=== PATIENT | female | born 1970 | race Caucasian/White ===

== ENCOUNTER 2021-09-15 17:40 | Emergency (ER) | payer OTHER ==
[2021-09-15 17:50] VITALS: BP 188/100
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
== END 2021-09-15 19:21 | disposition home or self-care (01) ==
LOC: ED 17:40
DX: F32.A Depression, unspecified (principal); F10.920 Alcohol use, unspecified with intoxication, uncomplicated
CPT/HCPCS: 36415; 99281; 99283

== ENCOUNTER 2022-08-19 08:00 | Outpatient (CLI) | payer OTHER ==
[2022-08-19 12:53] LABS: BASOPHILS # (AUTO) 0.1 10^3/uL (0.0-0.1); BASOPHILS % (AUTO) 0.6 %; EOSINOPHILS # (AUTO) 0.2 10^3/uL (0.0-0.7); EOSINOPHILS % (AUTO) 2.1 %; HCT - HEMATOCRIT 39.2 % (37.0-47.0); HGB - HEMOGLOBIN 11.8 g/dL (12.0-16.0); LYMPHOCYTES # (AUTO) 1.8 10^3/uL (1.5-3.5); LYMPHOCYTES % (AUTO) 23.7 %; MEAN CORPUSCULAR HEMOGLOBIN 27.3 pg (27.0-31.0); MEAN CORPUSCULAR HGB CONC 30.1 g/dL (32.0-36.0); MEAN CORPUSCULAR VOLUME 90.7 fL (81.0-99.0); MEAN PLATELET VOLUME 10.1 fL (7.9-10.8); MONOCYTES # (AUTO) 0.6 10^3/uL (0.0-1.0); MONOCYTES % (AUTO) 7.3 %; NEUTROPHILS # (AUTO) 5.1 10^3/uL (1.5-6.6); NEUTROPHILS % (AUTO) 65.9 %; PLT - PLATELET COUNT 226 10^3/uL (130-450); RED BLOOD COUNT 4.32 10^6/uL (4.20-5.40); RED CELL DISTRIBUTION WIDTH 16.8 % (12.0-15.0); WHITE BLOOD COUNT 7.8 x10^3/uL (4.8-10.8)
[2022-08-19 13:36] LABS: CALCIUM 8.9 mg/dL (8.5-10.3); CREATININE 1.1 mg/dL (0.4-1.0); POTASSIUM 4.6 mmol/L (3.5-5.0); URIC ACID 9.8 mg/dL (2.6-7.2)
== END 2022-08-19 23:59 | disposition home or self-care (01) ==
LOC: LAB.N 08:00
PROVIDERS: ATTEND Family Medicine
DX: M79.671 Pain in right foot (principal)
CPT/HCPCS: 36415; 80048; 84550; 85025; 85651

== ENCOUNTER 2022-09-04 09:48 | Outpatient (CLI) | payer OTHER ==
[2022-09-04 10:27] LABS: BASOPHILS # (AUTO) 0.1 10^3/uL (0.0-0.1); BASOPHILS % (AUTO) 0.7 %; EOSINOPHILS # (AUTO) 0.1 10^3/uL (0.0-0.7); EOSINOPHILS % (AUTO) 1.6 %; HCT - HEMATOCRIT 42.1 % (37.0-47.0); HGB - HEMOGLOBIN 12.9 g/dL (12.0-16.0); LYMPHOCYTES # (AUTO) 2.1 10^3/uL (1.5-3.5); LYMPHOCYTES % (AUTO) 28.2 %; MEAN CORPUSCULAR HEMOGLOBIN 27.3 pg (27.0-31.0); MEAN CORPUSCULAR HGB CONC 30.6 g/dL (32.0-36.0); MEAN CORPUSCULAR VOLUME 89.2 fL (81.0-99.0); MEAN PLATELET VOLUME 9.8 fL (7.9-10.8); MONOCYTES # (AUTO) 0.5 10^3/uL (0.0-1.0); NEUTROPHILS # (AUTO) 4.7 10^3/uL (1.5-6.6); NEUTROPHILS % (AUTO) 63.2 %; PLT - PLATELET COUNT 249 10^3/uL (130-450); RED BLOOD COUNT 4.72 10^6/uL (4.20-5.40); WHITE BLOOD COUNT 7.5 x10^3/uL (4.8-10.8)
[2022-09-04 10:42] LABS: % IRON SATURATION 12 % (20-50); ALBUMIN 3.7 g/dL (3.2-5.5); ALBUMIN/GLOBULIN RATIO 1.1 (1.0-2.2); ALKALINE PHOSPHATASE 57 IU/L (42-121); ALT ALANINE AMINOTRANSFERASE 17 IU/L (10-60); AST ASPARTATE AMINOTRANSFERASE 16 IU/L (10-42); BILIRUBIN,TOTAL 0.8 mg/dL (0.2-1.0); BUN - BLOOD UREA NITROGEN 16 mg/dL (6-20); CALCIUM 8.9 mg/dL (8.5-10.3); CARBON DIOXIDE - CO2 23 mmol/L (21-32); CHLORIDE 104 mmol/L (101-111); CHOL/HDL RATIO 3.3 (<4.4); CHOLESTEROL 217 mg/dL; CREATININE 1.1 mg/dL (0.4-1.0); GFR - MDRD 53 (>89); GLUCOSE 99 mg/dL (70-100); HDL CHOLESTEROL 66 mg/dL; IRON 59 ug/dL (28-170); LDL CHOLESTEROL,CALCULATED 121 mg/dL; LDL/HDL RATIO 1.8 (<4.4); SODIUM 138 mmol/L (135-145); TOTAL IRON BINDING CAPACITY 491 ug/dL (250-450); TOTAL PROTEIN 7.1 g/dL (6.7-8.2); TRANSFERRIN 351 mg/dL (192-382); TRIGLYCERIDES 152 mg/dL; VLDL CHOLESTEROL 30 mg/dL
[2022-09-04 10:48] LABS: ESTIMATED AVERAGE GLUCOSE 111 mg/dL (70-100); HEMOGLOBIN A1c% 5.5 % (4.27-6.07)
[2022-09-04 10:54] LABS: THYROID STIMULATING HORMONE 4.03 uIU/mL (0.34-5.60)
[2022-09-04 11:02] LABS: FERRITIN 7.4 ng/mL (11.0-306.8)
[2022-09-04 11:05] LABS: FOLATE 6.31 ng/mL (5.90 - >24.8)
[2022-09-05 13:10] LABS: VITAMIN D 25-HYDROXY 39.3 ng/mL (30.0-100.0)
== END 2022-09-04 09:49 | disposition home or self-care (01) ==
LOC: LAB 09:48
PROVIDERS: ATTEND Nurse Practitioner
DX: Z13.220 Encounter for screening for lipoid disorders (principal); E66.01 Morbid (severe) obesity due to excess calories; Z98.84 Bariatric surgery status
CPT/HCPCS: 36415; 80053; 80061; 82306; 82607; 82728; 82746; 83036; 83540; 83721; 83970; 84425; 84443; 84466; 84590; 85025

== ENCOUNTER 2022-09-21 08:14 | Outpatient (CLI) | payer OTHER | END 2022-09-21 08:15 | disposition home or self-care (01) | LOC: RT 08:14 | PROVIDERS: ATTEND Podiatrist | DX: Z01.818 Encounter for other preprocedural examination (principal) | CPT/HCPCS: 93005 ==

== ENCOUNTER 2022-10-27 11:17 | Outpatient (CLI) | payer OTHER | END 2022-10-27 11:18 | disposition home or self-care (01) | LOC: LAB 11:17 | PROVIDERS: ATTEND Nurse Practitioner | DX: M10.9 Gout, unspecified (principal); Z51.81 Encounter for therapeutic drug level monitoring | CPT/HCPCS: 36415; 84550 ==

== ENCOUNTER 2022-11-18 15:48 | Outpatient (CLI) | payer OTHER ==
--- NOTE | 2022-11-18 16:30 | SLEEP CARE CONSULTATION ---
Information from patient questionnaire entered by Diana Quintanilla. I have reviewed and concur with the information entered by Diana Quintanilla. This document represents the service I personally performed and the decisions made by me, Ivett Claros ARNP. History of Present Illness Service Date and Time: 11/18/2022 1548 Reason for Visit: New patient, Previously diagnosed sleep apnea Chief Complaint: reports: Unrefreshed sleep, Snoring, Excessive daytime sleepiness, Observed pauses in breathing, Fatigue, Frequent awakenings at night Usual bedtime: 9PM Time it takes to fall asleep: 20MIN W/ TRAZADONE Snores at night: Yes Observed to quit breathing while asleep: Yes Sleeps alone due to snoring: No Number of times waking at night: 3 Reasons for waking at night: reports: Choking, Snoring, Bathroom. denies: Gasping for air Toss, Turn, or Twitch while sleeping: Yes Recalls having dreams: Yes Usually gets out of bed at: 6AM Feels refreshed in the morning: No Morning headache: No Sleepy or fatigued during the day: Yes Ever fallen asleep while driving: No Takes day naps: Yes (once on the weekend normally) Dreams during day naps: No Prior sleep studies: Yes Year and Where: [address] Additional HPI information: I had the pleasure of seeing ISIDRO SHAHID today regarding the possibility of her having a sleep disorder. Her current complaints are excessive daytime sleepiness, fatigue, frequent night awakenings, observed pauses in breathing, snoring and unrefreshed sleep. She states she used to have a CPAP machine in 2016. She lost 200 lbs after a gastric sleeve in 2018 and did not need her CPAP anymore. She states the weight has been creeping up since then and has re-gained about 100 lbs. Her snoring is increasing and her tells her she is stopping breathing at night. She is tired all the time with no energy during the day. She states last time she had so many episodes they put her on a CPAP after only a couple hours into the night. 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 Patient is and lives in [place]. Have you smoked in the past 12 months: No Alcohol use: Yes Alcohol amount and frequency: 1 FEW TIMES A WEEK Caffeine use: Yes Caffeine amount and frequency: 2 TWICE A DAY Family History Family history of sleep disordered breathing: Yes Family Hx Sleep Apnea: Mother: Snoring, Father: Snoring Allergies and Home Medications Known drug allergies: No Drug allergies reviewed: Yes Home medication list reviewed: Yes (see updated list in EMR) Allergy and home medication list: Allergies No Known Drug Allergies Allergy (Verified 11/17/22 14:31) Review of Systems Weight gain over past 5 years: 100 Cardiovascular: reports: high blood pressure, leg or foot swelling Gastrointestinal: reports: heartburn Neurological: denies: headaches Psychiatric: reports: anxiety, mood disorder. denies: depression Ear/Nose/Throat: denies: tonsillectomy Endocrine: denies: thyroid disease Musculoskeletal: reports: joint pain, joint swelling, muscle pain or cramping Physical Exam Vital signs obtained and entered by: DIANA Wheeler MA Blood Pressure: 122/68 (LEFT ARM) Cuff size: long Heart Rate: 97 O2 Saturation: 98 Height: 5 ft 5 in Weight: 267 lb 12.8 oz Body Mass Index: 44.5 BMI Classification: Morbidly Obese Neck circumference: 16.75 Mouth and throat: narrow oropharynx Soft palate: long Hard palate: normal Uvula: normal Uvula visualization: 25% Mallampati Class III Tongue: enlarged in size with teeth arcos on lateral edges Tonsils: small Neck: normal w/o lymphadenopathy or thyromegaly Heart: regular rate and rhythm Lungs: clear bilaterally Impression and Plan 1. Suspected Obstructive Sleep Apnea-Hypopnea Syndrome, as previously diagnosed and as suggested by a history of loud and irregular snoring, observed cessation of breath while asleep, gasping or choking in sleep, frequent awakening during the night, unrefreshed sleep, cognitive impairment, and excessive daytime sleepiness. She is coming back for evaluation due to weight gain and returning symptoms. I recommend proceeding to polysomnography to confirm the diagnosis and to assess severity. If the patient has significant sleep disordered breathing, a manual CPAP titration study will also be performed to find the optimal treatment pressure. I informed the patient of what the sleep studies involve and after some discussion, obtained agreement to proceed. The pathophysiology of obstructive sleep apnea-hypopnea syndrome was discussed with the patient and health risks of cardiovascular and cerebrovascular disease if not treated. Risks of drowsy driving discussed in detail and patient advised to avoid long distance driving and to puller over at the first sign of drowsiness. Patient agreed to plan. * Schedule polysomnography +- manual CPAP titration study and return in 1-2 weeks after the study to discuss result and initiate therapy. * Avoid long distance driving or driving when feeling sleepy. * Avoid alcohol, sedative and muscle relaxant around bedtime. * Attempt to lose weight. * Review instructions provided by trained office staff on how to prepare for the sleep study. * Return for follow-up after sleep study completed. Counseling Topics: Weight loss health impact Visit Type: In Office Time Spent with Patient (minutes): 30 Provider Statement: I spent 100% of the Face to Face Visit with the patient with greater than 50% spent counseling the patient and coordination of care.
[2022-11-18 16:44] VITALS: BP 122/68
== END 2022-11-18 15:49 | disposition home or self-care (01) ==
LOC: SC 15:48
PROVIDERS: ATTEND Nurse Practitioner Family
DX: G47.33 Obstructive sleep apnea (adult) (pediatric) (principal); E66.01 Morbid (severe) obesity due to excess calories; Z68.41 Body mass index [BMI] 40.0-44.9, adult
CPT/HCPCS: 99203; 99212

== ENCOUNTER 2023-01-04 07:53 | Outpatient (CLI) | payer OTHER | END 2023-01-04 07:54 | disposition home or self-care (01) | LOC: SC 07:53 | PROVIDERS: ATTEND Nurse Practitioner Family | DX: G47.33 Obstructive sleep apnea (adult) (pediatric) (principal); R09.02 Hypoxemia | CPT/HCPCS: 95806 ==

== ENCOUNTER 2023-02-07 16:04 | Outpatient (CLI) | payer OTHER ==
--- NOTE | 2023-02-07 16:48 | Sleep Patient Instructions ---
Sleep Center Visit Summary - Patient Visit Information Reason for Visit: Sleep study followup - Patient Instructions Additional Instructions: You are being started on CPAP therapy with pressure setting at 4-15 cmH2O. You will need to call the sleep care office to set up your follow up once you have your APAP machine and we will schedule a visit to check compliance and response to therapy at that time. You may call the office with any concerns about pressure feeling too low or too much for adjustment, if needed. You should contact DME for any questions or concerns about mask or equipment. Please follow up in the sleep care office one month after obtaining new CPAP. - Clinic Information Contact: [facility] [address] [place] [address] [email or web address] T: [phone]
--- NOTE | 2023-02-07 17:02 | SLEEP CARE CONSULTATION ---
Information from patient questionnaire entered by Layla Quintanilla. I have reviewed and concur with the information entered by Layla Quintanilla. This document represents the service I personally performed and the decisions made by , Ivett Claros ARNP. History of Present Illness Service Date and Time: 02/07/2023 1604 Initial [place] Sleepiness Scale score: 7 (11/18/22) Current [place] Sleepiness Scale score: 6 (02/07/23) Additional HPI information: ISIDRO SHAHID returns for follow up and results of the recently performed home sleep study. I explained the pathophysiology behind obstructive sleep apnea. We then spent quite a bit of time discussing different treatment options. For mild obstructive sleep apnea, surgery and oral appliance are alternatives to nasal CPAP therapy but in moderate or severe cases, nasal CPAP is the most effective and reliable treatment. Because apnea is primarily in supine position, then positional management therapy could be effective. Methods discussed such as positioning with pillows, using a T-shirt with tennis balls in the back or commercial products that have a pillow format on back to prevent supine sleep. I reviewed the impact of weight changes on sleep apnea and strongly recommended losing weight. After some discussion, the patient opted to go with the nasal CPAP therapy. Nasal autoCPAP set at 4-15 cmH20 will be ordered with rationale explained. A manual titration study will be ordered if unable to find optimal pressure with office adjustments. I explained how CPAP machine works and what to expect when using the machine. The patient was instructed to call the CPAP supplier to discuss any mechanical problem that may occur. If the mask given is uncomfortable or is difficult to keep on through the night even with adjustment, contact the CPAP supplier as many will replace with another mask style if notified before 30 days. If snoring or perceives is not getting enough air or too much air from the machine, notify this office. Patient was cautioned about risks of drowsy driving until sleepiness symptoms resolve. Sleep Study - Results Type of Sleep Study: Home sleep study (COMPLETED 01/04/23) Prior sleep studies: Yes Year and Where: [address] Allergies and Home Medications Known drug allergies: No Drug allergies reviewed: Yes Home medication list reviewed: Yes (no changes) Allergy and home medication list: Allergies No Known Drug Allergies Allergy (Verified 02/06/23 10:07) Review of Systems Review of systems same as previous: Yes (no changes) Physical Exam Vital signs obtained and entered by: LAYLA Wheeler MA Blood Pressure: 126/76 (LEFT ARM) Cuff size: regular Heart Rate: 74 O2 Saturation: 99 Height: 5 ft 5 in Weight: 249 lb 9.6 oz Weight change since last visit: 18 lb loss Body Mass Index: 41.5 BMI Classification: Morbidly Obese Impression and Plan 1. Obstructive Sleep Apnea-Hypopnea Syndrome, mild, with lowest oxygen saturation of 82%. Obviously this is the cause of the patients symptoms of unrefreshed sleep, and excessive daytime sleepiness. Positive pressure therapy could benefit hypertension, anxiety and mood disorder (bipolar and PTSD). As mentioned above, the patient will be started on nasal autoCPAP therapy with pressure set at 4-15 cmH2O. Compliance guidelines also reviewed. A copy of compliance guidelines will be given for reference at check out. Because the apnea is more severe supine, I instructed to avoid sleeping supine using pillow positioning until able to start CPAP use. 2. Hypoxemia, mild, with a vishnu oxygen saturation of 82% and 127.5 minutes spent under 90%. Her baseline oxygen saturation was low normal with an average oxygen saturation of 90%. 2. Obesity, unspecified. Currently patients BMI is 41.5. She has lost weight, 18 lbs since last visit. She is taking semaglutide once a week for weight loss. Obesity increases the risk of apnea, CPAP pressure requirements and overall health risks especially cardiovascular and diabetes. Thus patient is advised to continue to try to lose weight. * Nasal auto CPAP therapy, pressure at 4-15 cm H2O. * Continue to try to lose weight. * Avoid alcohol consumption near bedtime. * Avoid supine sleep until using CPAP. * The patient is again cautioned about driving until sleepiness completely resolves. * Return one month after CPAP obtained. I will assess response to therapy and compliance at that time. Counseling Topics: Weight loss health impact Prescriptions: Auto CPAP Visit Type: In Office Time Spent with Patient (minutes): 20 Provider Statement: I spent 100% of the Face to Face Visit with the patient with greater than 50% spent counseling the patient and coordination of care.
[2023-02-07 17:06] VITALS: BP 126/76
== END 2023-02-07 16:05 | disposition home or self-care (01) ==
LOC: SC 16:04
PROVIDERS: ATTEND Nurse Practitioner Family
DX: G47.33 Obstructive sleep apnea (adult) (pediatric) (principal); R09.02 Hypoxemia; E66.01 Morbid (severe) obesity due to excess calories; Z68.41 Body mass index [BMI] 40.0-44.9, adult
CPT/HCPCS: 99212; 99213

== ENCOUNTER 2023-08-29 09:20 | Outpatient (CLI) | payer OTHER ==
--- NOTE | 2023-08-31 15:58 | Mammography Report ---
BILATERAL DIGITAL SCREENING MAMMOGRAM 3D/2D: 08/29/2023 CLINICAL: Routine screening. Comparison is made to exams dated: 06/13/2022 mammogram and 04/19/2018 mammogram - [facility] . There are scattered areas of fibroglandular density in both breasts (category b / 25%-50% glandular t issue). No significant masses, calcifications, or other findings are seen in either breast. There has been no significant interval change. IMPRESSION: NEGATIVE There is no mammographic evidence of malignancy. A 1 year screening mammogram is recommended. Based on the Tyrer Cuzick model (a risk assessment model) the patient's lifetime risk is 16.3% and he r 10 year risk is 3.9%. According to the ACR, ACS, and NCCN guidelines, an annual breast MRI exam anitha ng with mammogram is recommended if the patients lifetime risk is 20% or greater. This exam was interpreted at Station ID: [id number]. NOTE: For mammograms, a report in lay terms will be sent to the patient. Approximately 15% of breast malignancies will not be visualized mammographically. In the management of a palpable breast mass, a negative mammogram must not discourage biopsy of a clinically suspicious lesion. Electronically Signed By: Brie Dominguez M.D., PH.D melchor/elielrad:08/30/2023 17:03:32 letter sent: No_Letter ACR BI-RADS Category 1: Negative 3341F PARENCHYMAL PATTERN: (A) - The breast(s) demonstrate(s) scattered fibroglandular densities. BI-RADS CATEGORY: (1) - 1 Mammogram [id number] 1 year screening LATERALITY: (B)
== END 2023-08-29 09:21 | disposition home or self-care (01) ==
LOC: DI 09:20
DX: Z12.31 Encounter for screening mammogram for malignant neoplasm of breast (principal); R92.323 Mammographic fibroglandular density, bilateral breasts

== ENCOUNTER 2023-12-20 10:33 | Emergency (ER) | payer OTHER ==
[2023-12-20 11:03] VITALS: BP 132/85; O2SAT 100
--- NOTE | 2023-12-20 11:21 | ED Physician Documentation ---
History of Present Illness - Stated complaint Stated Complaint: WITHDRAWL - Chief complaint Chief Complaint: General - Additonal information Additional information: Patient 53-year-old female presenting the emergency department chief complaint of alcohol abuse. Reports drinking 1 pint of vodka daily. Last drink yesterday. States that she wishes to quit drinking because she is scared and knows that is getting out of hand. She denies history of severe significant withdrawal in the past such as seizures, hallucinations, delirium. Review of Systems Constitutional: denies: Fever Eyes: denies: Loss of vision Ears: denies: Loss of hearing Nose: denies: Rhinorrhea / runny nose Throat: denies: Dental pain / toothache Cardiac: denies: Chest pain / pressure Respiratory: denies: Dyspnea GI: denies: Abdominal Pain : denies: Dysuria PD PAST MEDICAL HISTORY - Past Medical History Past Medical History: Yes Cardiovascular: Hypertension Respiratory: None Neuro: None Endocrine/Autoimmune: None GI: None TEAM LEAD: None : None HEENT: None Psych: Depression Musculoskeletal: None Derm: None - Past Surgical History Past Surgical History: Yes Ortho: Other - Present Medications Home Medications: Ambulatory Orders Medication Instructions Recorded Confirmed Amlodipine Besylate [Norvasc] See Rx Instructions .ROUTE .COMPLEX 11/18/22 02/07/23 Cholecalciferol (Vitamin D3) See Rx Instructions .ROUTE .COMPLEX 11/18/22 02/07/23 [Vitamin D3] Iron Dextran [Infed] See Rx Instructions .ROUTE .COMPLEX 11/18/22 02/07/23 Lamotrigine [Lamictal (Blue)] See Rx Instructions .ROUTE .COMPLEX 11/18/22 02/07/23 Losartan Potassium [Cozaar] See Rx Instructions .ROUTE .COMPLEX 11/18/22 02/07/23 Omeprazole See Rx Instructions .ROUTE .COMPLEX 11/18/22 02/07/23 Semaglutide [Ozempic] See Rx Instructions .ROUTE .COMPLEX 11/18/22 02/07/23 Venlafaxine HCl [Effexor Xr] See Rx Instructions .ROUTE .COMPLEX 11/18/22 02/07/23 traZODone [Desyrel] See Rx Instructions .ROUTE .COMPLEX 11/18/22 02/07/23 - Allergies Allergies/Adverse Reactions: Allergies Allergy/AdvReac Type Severity Reaction Status Date / Time No Known Drug Allergies Allergy Verified 12/20/23 10:54 - Social History Does the pt smoke?: No Smoking Status: Never smoker Does the pt drink ETOH?: Yes ETOH Use: Liquor Does the pt have substance abuse?: No - Immunizations Immunizations are current?: Yes - POLST Patient has POLST: No PD ED PE NORMAL - General General: Alert and oriented X 3 - HEENT HEENT: Atraumatic - Neck Neck: Supple, no meningeal sign - Cardiac Cardiac: RRR, No murmur, No gallop, Strong equal pulses - Respiratory Respiratory: No respiratory distress - Abdomen Abdomen: Normal bowel sounds - Female Female : Deferred - Rectal Rectal: Deferred - Derm Derm: Normal color - Neuro Neuro: Alert and oriented X 3, fermenter champagne 2-12 intact, No motor deficit, No sensory deficit, Normal speech Results - Vitals Vitals: Vital Signs - 24 hr 12/20/23 10:55 Temperature 36.9 C Heart Rate 67 Respiratory 18 Rate Blood Pressure 132/85 H O2 Saturation 100 Oxygen O2 Source Room air PD Medical Decision Making - ED course Complexity details: considered differential, d/w patient ED course: Patient 53-year-old female presenting the emergency department chief complaint of alcohol withdrawal. Afebrile, hematin stable on arrival to the emergency department. Clear aeration in all lung mcneal. No notable tremor, signs agitation or overt signs of acute severe alcohol withdrawal at this time. Is otherwise mentating well. Denies suicidal, homicidal ideation. Endorsed for history of heavy drinking and reported that she Was interested in treatment however did not wish hospitalization/medical stabilization or rehabilitation at this time. Was offered lab work, IV hydration as well as discussed pros and cons versus of a Librium protocol with the patient however before initiating any of these things she requested discharge. She demonstrated decisional capacity and did not appear to be experiencing any forms of danger for self, harm to self, other. Provided resources by social work prior to discharge. Departure - Departure Disposition: 01 Home, Self Care Clinical Impression: Alcohol abuse with alcohol-induced disorder Instructions: ED Drug Abuse General, ED Withdrawal Narcotic Comments: Thank you for allowing us to care for you today at [facility]. Please follow-up with the resources provided by social work. If it anytime you find yourself having new or worsening symptoms or if he would like further treatment or care you are always welcome to return to the emergency department. Forms: PCP List
== END 2023-12-20 11:24 | disposition home or self-care (01) ==
LOC: ED 10:33
DX: F10.19 Alcohol abuse with unspecified alcohol-induced disorder (principal)
CPT/HCPCS: 99283

== ENCOUNTER 2024-01-26 10:53 | Outpatient (CLI) | payer OTHER ==
[2024-01-26 11:06] LABS: BASOPHILS % (AUTO) 0.5 %; EOSINOPHILS # (AUTO) 0.1 10^3/uL (0.0-0.7); EOSINOPHILS % (AUTO) 0.8 %; HCT - HEMATOCRIT 42.4 % (37.0-47.0); HGB - HEMOGLOBIN 13.4 g/dL (12.0-16.0); LYMPHOCYTES # (AUTO) 1.8 10^3/uL (1.5-3.5); LYMPHOCYTES % (AUTO) 27.7 %; MEAN CORPUSCULAR HEMOGLOBIN 29.8 pg (27.0-31.0); MEAN CORPUSCULAR HGB CONC 31.6 g/dL (32.0-36.0); MEAN CORPUSCULAR VOLUME 94.4 fL (81.0-99.0); MEAN PLATELET VOLUME 9.5 fL (7.9-10.8); MONOCYTES # (AUTO) 0.5 10^3/uL (0.0-1.0); MONOCYTES % (AUTO) 7.6 %; NEUTROPHILS % (AUTO) 63.2 %; PLT - PLATELET COUNT 206 10^3/uL (130-450); RED BLOOD COUNT 4.49 10^6/uL (4.20-5.40); RED CELL DISTRIBUTION WIDTH 16.3 % (12.0-15.0); WHITE BLOOD COUNT 6.3 x10^3/uL (4.8-10.8)
[2024-01-26 11:17] LABS: ALBUMIN 3.8 g/dL (3.2-5.5); ALBUMIN/GLOBULIN RATIO 1.7 (1.0-2.2); ALKALINE PHOSPHATASE 60 IU/L (42-121); ALT ALANINE AMINOTRANSFERASE 14 IU/L (10-60); AST ASPARTATE AMINOTRANSFERASE 15 IU/L (10-42); BILIRUBIN,TOTAL 0.9 mg/dL (0.2-1.0); BUN - BLOOD UREA NITROGEN 14 mg/dL (6-20); CALCIUM 9.4 mg/dL (8.5-10.3); CARBON DIOXIDE - CO2 33 mmol/L (21-32); CHLORIDE 105 mmol/L (101-111); CHOL/HDL RATIO 2.3 (<4.4); CHOLESTEROL 163 mg/dL; GFR - MDRD 58 (>89); GLUCOSE 91 mg/dL (74-104); HDL CHOLESTEROL 70 mg/dL; LDL CHOLESTEROL,CALCULATED 69 mg/dL; SODIUM 141 mmol/L (135-145); TRIGLYCERIDES 121 mg/dL (48-352); URIC ACID 6.4 mg/dL (2.3-6.6); VLDL CHOLESTEROL 24 mg/dL
== END 2024-01-26 10:54 | disposition home or self-care (01) ==
LOC: LAB 10:53
PROVIDERS: ATTEND Nurse Practitioner
DX: I10 Essential (primary) hypertension (principal); Z13.220 Encounter for screening for lipoid disorders; M10.9 Gout, unspecified
CPT/HCPCS: 36415; 80053; 80061; 83721; 84550; 85025